=== PATIENT | female | born 1935 | race Caucasian/White ===

== ENCOUNTER 2024-07-09 12:20 | Inpatient (IN) | payer MEDICARE ==
[~2024-07-09] VITALS: Ht 162.6 cm; Wt 60.5 kg
--- NOTE | 2024-07-09 14:00 | ELECTROCARDIOGRAPH REPORT ---
[facility] Test Date: 2024-07-09 Test Time: 13:57:57 Pat Name: RAFFY LEWIS Department: [facility] Patient ID: [facility]-[id number] Room: [place] [address] Gender: F [employer] Location Manager: : 1935 Requested By: FERMIN FLORES Order Number: [id number] Reading MD: Dr. Jeronimo Echols Measurements Intervals [place] Rate: 79 P: 32 NV: 177 QRS: -42 QRSD: 92 T: 77 QT: 387 QTc: 444 Interpretive Statements Sinus rhythm Probable left atrial enlargement Left axis deviation Probable anteroseptal infarct, old Electronically Signed On 07-15-2024 13:45:[address] Jeronimo Echols Please click the below link to view image of tracing.
--- NOTE | 2024-07-09 14:17 | RADIOLOGY REPORT ---
CHEST RADIOGRAPH Indication: sepsis Technique: Single frontal view of the chest was obtained Comparison: None FINDINGS: Lines and Tubes: None Lungs: No focal consolidation. Pleura: No effusion. No pneumothorax. Cardiomediastinal contours: Unremarkable Bones: No acute osseous abnormality. IMPRESSION: No acute cardiopulmonary disease.
[2024-07-09 14:42] LABS: BASOPHILS % (AUTO) 0.2 % (0-1); EOSINOPHILS % (AUTO) 0.1 % (0-6); HEMATOCRIT 33.5 % (35.0-45.0); LYMPHOCYTES # (AUTO) 1.4 X10'3 (1.1-4.8); LYMPHOCYTES % (AUTO) 15.5 % (21-51); MEAN CORPUSCULAR HEMOGLOBIN 27.8 PG (27.0-31.0); MEAN CORPUSCULAR HGB CONC 32.8 g/dL (33.0-36.5); MEAN PLATELET VOLUME 6.9 FL (7.4-10.4); MONOCYTES # (AUTO) 0.8 X10'3 (0-0.9); MONOCYTES % (AUTO) 8.3 % (2-12); NEUTROPHILS # (AUTO) 7.1 X10'3 (1.8-7.7); NEUTROPHILS % (AUTO) 75.9 % (42-75); PLATELET COUNT 436 X10'3 (140-440); RED BLOOD COUNT 3.94 X10'6 (4.20-5.60); RED CELL DISTRIBUTION WIDTH 16.3 % (11.5-14.5); WHITE BLOOD COUNT 9.3 X10'3 (4.5-11.0)
[2024-07-09 14:51] LABS: APTT 27 SECONDS (22-32); INR 1.1 INR; PROTHROMBIN TIME 11.5 SECONDS (9.0-12.0)
[2024-07-09] MEDS: ondansetron/PF 4mg/2ml inj IV ONE ×2 (14:58→16:42)
--- NOTE | 2024-07-09 14:58 | RADIOLOGY REPORT ---
CT CT ABDOMEN PELVIS INDICATION: bowel obstruction EXAM DATE: 07/09/2024 01:48 PM COMPARISON: None RADIATION DOSE: CTDIvol: 11 mGy, DLP: 602 mGy*cm PROCEDURE: Helical CT images were obtained of the abdomen and pelvis without IV contrast Sagittal and coronal reconstructions are provided. ORAL CONTRAST: None. ADDITIONAL IMAGES / REFORMATS: None All C T scans at this medical facility are performed using dose modulation techniques as appropriate to a p erformed exam including the following: Automated exposure control was utilized; adjustment of the MA and/or KV according to patient size; and use of iterative reconstruction technique. FINDINGS: LUNG BASE: Normal. LIVER: Normal. GALLBLADDER AND BILIARY TREE: No calcified gallstones. Normal caliber wall. No intra- or extrahepatic biliary ductal dilation. PANCREAS: Normal. SPLEEN: Multiple punctate granulomas are seen. 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 BOWEL: Multiple dilated loops of small bowel measuring up to 3.2cm is visualized. There is a large fa t containing ventral abdominal wall hernia also containing a loop of small bowel. The appendix is nor mal. Colonic anastomotic sutures are noted. ADRENALS: Normal. KIDNEYS AND URETER: Small bilateral kidney cysts are seen. BLADDER: Normal. REPRODUCTIVE ORGANS: Absent uterus. LYMPH NODES:No lymphadenopathy. PERITONEUM: No ascites or free air. No other fluid collection. VESSELS: Scattered atherosclerotic calcifications are noted. RETROPERITONEUM: Normal. ABDOMINAL WALL: Ventral abdominal wall hernia. BONES: Scattered osseous degenerative changes are noted. IMPRESSION: Multiple dilated loops of small bowel measuring up to 3.2cm. Large fat containing ventral abdominal wall hernia also containing a loop of small bowel, which is li bre the transition point is consistent with a mechanical bowel obstruction.
--- NOTE | 2024-07-09 15:01 | Physician Documentation ---
History of Present Illness ~ Chief Complaint: Constipation Stated Complaint: "I THINK SHE HAS A BOWEL BLOCKAGE" Time Seen by MD: 13:57 Primary Medical Doctor: none Mode of Arrival: POV, Ambulatory HPI This pleasant 88-year-old female presents to the ED with several days of constipation and difficulty defecating. Over the last 1-2 days she has had increased abdominal distention and states that today she has stopped passing gas. This any fevers reports that most of the pain is in this large bulged area in the left lower quadrant. States she has never experienced this before. Patient is alert and oriented and a good historian. Day of Onset: July 09, 2024 Medication Reconciliation Allergies: Coded Allergies: No Known Allergies (Unverified , 07/09/24) Scheduled Amlodipine Besylate (Amlodipine Besylate), 1 TAB PO DAILY, (Reported) Atorvastatin Calcium (Atorvastatin Calcium), 1 TAB PO DAILY, (Reported) Irbesartan (Irbesartan), 1 TAB PO DAILY, (Reported) Levothyroxine Sodium (Levothyroxine Sodium), 1 TAB PO DAILY, (Reported) Omeprazole (Prilosec), 1 CAP PO DAILY, (Reported) Oxybutynin Chloride (Oxybutynin Chloride), 1 TAB PO BID, (Reported) Miscellaneous Medications Hydrochlorothiazide (Hydrochlorothiazide), (Reported) Review of Systems All Other Systems at this time: Reviewed and Negative ROS As stated above in the HPI, otherwise all systems are reviewed and negative. Physical Exam Vital Signs: Temperature: 98.5, Source: Oral, Heart Rate: 78, Respiratory Rate: 18, BP: 139/57, Pulse Oximetry: 95, Weight: 60.450 Physical Exam General: Alert, no apparent distress. Cardiovascular: Regular rate and rhythm, no murmurs. Gastrointestinal: S, tender with a firm large distention in the left lower quadrant. Neurologic: Oriented x4. Psychiatric: Normal mood and affect. Skin: Normal color, warm and dry. No edema, no ecchymosis. Progress Results/Orders Results/Orders Orders - ANIRUDH MORTON NP * Npo Now * (07/09/24 15:04) Nasal Gastric Tube (07/09/24 ) Page Hospitalist (07/09/24 ) Completed Orders - ANIRUDH MORTON LIBRARIAN HELPER Ondansetron Inj. (Zofran 4mg/2ml Vial) (07/09/24 14:50) Medications Received in ER Medications (Trade) Dose Ordered Sig/Latanya Route PRN Reason Start Time Stop Time Status Last Admin Dose Admin (Zofran 4mg/2ml vial) 4 mg ONCE ONCE IV 07/09/24 14:50 07/09/24 14:51 DC 07/09/24 14:58 4 MG Sodium Chloride 1,000 ml @ 100 mls/hr Q10H IV 07/09/24 15:15 07/09/24 15:46 100 MLS/HR Vital Signs 07/09/24 07/09/24 07/09/24 12:30 14:10 14:53 Temp 98.5 Pulse 85 78 Resp 15 15 18 B/P (MAP) 135/54 139/57 (84) Pulse Ox 98 95 Laboratory Tests Test 07/09/24 14:22 White Blood Count 9.3 Red Blood Count 3.94 L Hemoglobin 11.0 L Hematocrit 33.5 L Mean Corpuscular Volume 85.0 Mean Corpuscular Hemoglobin 27.8 Mean Corpuscular Hemoglobin Concent 32.8 L Red Cell Distribution Width 16.3 H Platelet Count 436 Mean Platelet Volume 6.9 L Neutrophils (%) (Auto) 75.9 H Lymphocytes (%) (Auto) 15.5 L Monocytes (%) (Auto) 8.3 Eosinophils (%) (Auto) 0.1 Basophils (%) (Auto) 0.2 Neutrophils # (Auto) 7.1 Lymphocytes # (Auto) 1.4 Monocytes # (Auto) 0.8 Eosinophils # (Auto) 0.0 Basophils # (Auto) 0.0 CBC Comment Prothrombin Time 11.5 INR International Normalized Ratio 1.1 Activated Partial Thromboplast Time 27 Coagulation Comments Sodium Level 139 Potassium Level 3.2 L Chloride Level 99 Carbon Dioxide Level 26.2 Anion Gap 14 Blood Urea Nitrogen 12 Creatinine 0.70 Estimated GFR/1.73 m2 79 BUN/Creatinine Ratio 17.1 Glucose Level 148 H Hemoglobin A1c 6.3 H Lactic Acid Level 1.5 Calcium Level 9.4 Magnesium Level 1.3 L Total Bilirubin 0.6 Aspartate Amino Transf (AST/SGOT) 23 Alanine Aminotransferase (ALT/SGPT) 28 Alkaline Phosphatase 111 Troponin I High Sensitivity 12 Pro-B-Type Natriuretic Peptide 370 Total Protein 7.6 Albumin 2.9 L Globulin 4.7 H Albumin/Globulin Ratio 0.6 L Chemistry Comments Microbiology Date/Time Source Procedure Growth Status 07/09/24 14:28 Blood Hand Left Blood Culture - Preliminary NEGATIVE (LESS THAN 24 HOURS) Resulted Medical Decision Making Findings CT findings indicate: Large fat containing ventral abdominal wall hernia also containing a loop of small bowel, which is likely the transition point is consistent with a mechanical bowel obstruction. Patient has been gone to vomit only bile at this time. Spoke to Dr. Rosado he will see the patient for likely surgery AND admit to the hospital. Departure Disposition: ADMITTED INPATIENT Impression: Primary Impression: Fecal impaction Additional Impressions: SBO (small bowel obstruction) Ventral hernia with bowel obstruction Condition: Stable Referrals: NO PRIMARY CARE PROVIDER (PCP) Signature Scribe Signature: d Attestation: The note accurately reflects work and decisions made by me.Anirudh Sandoval NP 07/09/24 15:10 ANIRUDH MORTON NP July 09, 2024 15:01
[2024-07-09 15:03] LABS: ALANINE AMINOTRANSFERASE 28 U/L (12-78); ALBUMIN 2.9 G/DL (3.4-5.0); ALBUMIN/GLOBULIN RATIO 0.6 (1.1-1.5); ALKALINE PHOSPHATASE 111 IU/L (46-116); ANION GAP 14 (8-16); ASPARTATE AMINO TRANSFERASE 23 U/L (10-37); BILIRUBIN,TOTAL 0.6 MG/DL (0.1-1.0); BLOOD UREA NITROGEN 12 MG/DL (7-18); BUN/CREATININE RATIO 17.1 (10.0-20.0); CALCIUM 9.4 MG/DL (8.5-10.1); CHLORIDE 99 MMOL/L (99-107); GLUCOSE 148 MG/DL (70-104); POTASSIUM 3.2 MMOL/L (3.5-5.1); PRO BRAIN NATRIURETIC PEPTIDE 370 PG/ML (0-450); SODIUM 139 MMOL/L (135-145); TOTAL CARBON DIOXIDE 26.2 MMOL/L (24-32); TOTAL PROTEIN 7.6 G/DL (6.4-8.2); eCRCL 50 ML/MIN; eGFR 79 ML/MIN
[2024-07-09] MEDS ORDERED: magnesium Cl slow-release 64mg tablet PO PRN (15:15)
[2024-07-09] MEDS ORDERED: acetaminophen 325mg tablet PO PRN (15:15)
[2024-07-09] MEDS ORDERED: ondansetron/PF 4mg/2ml inj IV PRN (15:15)
[2024-07-09] MEDS ORDERED: HYDROmorphone inj. 0.5 MG/0.5 ML DISP.SYRIN IV PRN (15:15)
[2024-07-09] MEDS ORDERED: potassium Cl 20 mEq SR tablet PO PRN (15:15)
[2024-07-09 15:36] LABS: MAGNESIUM 1.3 MG/DL (1.5-2.4)
[2024-07-09 15:38] LABS: HEMOGLOBIN A1C 6.3 % (4.5-6.2)
[2024-07-09] MEDS: normal saline 1000ml 1,000 ML IV SCH (15:46)
--- NOTE | 2024-07-09 15:50 | HISTORY AND PHYSICAL-Residence ---
History & Physical Providers to CC Resident Creating Document: ALISSON RAMOS, RES ~ History of Present Illness Primary Medical Doctor: none Reason for Admit\Complaint: Abdominal pain History of Present Illness This is a 88-year-old female with a history of arthritis, hypertension, hypothyroidism, adenocarcinoma of sigmoid s/p resection in 2004, four C-sections presents to the ED with a chief complaint of abdominal pain since yesterday night. She was not able to eat anything since last night and had 7/10 abdominal pain which progressively worsened this morning and hence decided to visit the ER. She had nausea and three episodes of vomiting in the ER. She has a associated abdominal distention and felt a hard mass around the umbilicus mostly on the left side and was not passing any gas since yesterday evening. She denies any fever but has lost 10-20 lb in the last two years due to low appetite. Allergies: Coded Allergies: No Known Allergies (Unverified , 07/09/24) Home Medications Home Medications Active Past Medical History Past Medical History Hypertension, arthritis, hypothyroidism, adenocarcinoma of sigmoid colon Past Surgical History Surgical History Comment Sigmoid colectomy, C-sections Past Social History Social History Comment Denies smoking, alcohol, drugs, ambulates independently ROS All Other Systems: Reviewed and Negative ROS Reviewed and negative except for the pertinent positives in HPI Exam Vitals: Vital Signs Date Time Temp Pulse Resp B/P (MAP) Pulse Ox O2 Delivery O2 Flow Rate FiO2 07/09/24 14:53 18 07/09/24 14:10 78 95 07/09/24 12:30 98.5 General: General: well developed, well nourished. Awake , alert, and oriented x4, resting comfortably in the bed, in no acute distress . HEENT: Atraumatic, normocephalic, EOMI, anicteric sclera B; pink conjunctiva; PERRLA, normal oropharynx, moist oral and nasal mucosa. Tympanic membrane , nose , throat clear. Neck: Trachea midline. Supple, full range of motion, no JVD, bruit , hepatojugular reflex , lymphadenopathy or masses, or other lesions Cardiac: Regular rhythm, regular rate no murmurs, rubs, or gallops. Normal S1 and S2, no S3 noticed. PMI is normal. Respiratory: Equal breath sounds bilaterally, no tachypnea; lungs clear to auscultation bilaterally, no wheezing ,rub or rales, or crackles. Chest wall is symmetric and without deformity. No signs of trauma. Chest wall is nontender. No signs of respiratory distress. Resonance is normal upon percussion bilaterally. Gastrointestinal: Abdomen asymmetric, moderately distended, hard mass around the umbilicus, non-tender, absent bowel sounds x4 quadrant, no hepatosplenomegaly ,no masses , no bruit, no flank pain bilaterally. No voluntary guarding, rebound, or rigidity. No tenderness to percussion. No pulsatile masses. Equal femoral pulses. No Armenta's sign or McBurney point tenderness. Back; no CVA tenderness bilaterally, no deformities. Neck and back are without deformity as well. No tenderness noted on palpation of the spinous processes. Spinous processes are midline. Cervical, thoracic, and lumbar paraspinal muscles are not tender and are without spasm. : normal external genitalia, without lesions, swelling, masses or tenderness. Musculoskeletal: Extremities, normal range of motion, non-tender, muscle strength 5/5 x 4. Negative Homans signs bilaterally on lower extremity. Distal pulses full symmetrical, no clubbing, cyanosis , edema. Neurological: Speech is clear, alert, and oriented x 4. No motor or sensory deficit, deep tendon reflexes normal, cerebellar intact. Cranial nerves II-XII intact. Psych: Alert and or appropriate, normal affect. Vascular: Good distal pulses, which are equal x4; capillary refill less than 2 seconds. Skin: Warm, dry, no pallor, no rash or petechiae. Diagnostic Data Last Recorded Lab Results: 07/09/24 1422 07/09/24 1422 Diagnostic Data: Laboratory Tests Test 07/09/24 14:22 Prothrombin Time 11.5 SECONDS (9.0-12.0) INR International Normalized Ratio 1.1 INR Activated Partial Thromboplast Time 27 SECONDS (22-32) Coagulation Comments Advance Care Planning Advanced Care plannin - 30 Minutes (I spent a total of 17 minutes on reviewing various resuscitative measures/ ACP with the patient at the time of admission. Her daughter was at the bedside. She mentions that the patient's son is the POA. The patient has decided on a DNR code status) Additional Plan Incarcerated ventral hernia CT abdomen shows Multiple dilated loops of small bowel measuring up to 3.2cm. Large fat containing ventral abdominal wall hernia also containing a loop of small bowel, which is likely the transition point is consistent with a mechanical bowel obstruction. Abdomen asymmetric, moderately distended, hard mass around the umbilicus, non- tender, absent bowel sounds x4 quadrant Continue IV fluids at the rate of 100 mL/hour. Nausea medication Zofran as needed. NPO now. NG-tube placement Dr. Avalos has been paged. He recommends robo assisted repair of incarcerated ventral hernia in the a.m.. One dose of cefoxitin given before surgery. UTI UA shows 50-100 urine WBC and small high positive leukocyte esterase. Started on ceftriaxone IV 1 g daily. Follow up with urine cultures Normocytic normochromic Anemia Continue monitoring CBC. Iron studies ordered. Follow up. Consider FOBT if it is iron-deficiency anemia Hypokalemia Potassium replacement protocol in place Hypertension Continue home medication amlodipine, hydrochlorothiazide, irbesartan after resuming oral feeds. IV hydralazine p.r.n. for high blood pressure till then Hypothyroidism Continue levothyroxine after resuming oral feeds Code Status: DNR DVT Prophylaxis: Heparin Analgesia/Sedation: Morphine, Dilaudid p.r.n. Lines/Tubes: PIV Gi Prophylaxis: None Nutrition: NPO PT: Yes Prognosis: Guarded Disposition: Admit to surgical floor. Pending surgical consultation Alisson Good MD Internal Medicine Resident PGY-1 Date of Service: July 09, 2024 Billing Provider: IRASEMA DEL VALLE MD Common Visit Codes: [id number] INP/OBS CARE (HIGH) ALISSON RAMOS, RES July 09, 2024 15:50 IRASEMA DEL VALLE MD July 09, 2024 18:27
[2024-07-09] MEDS: morphine 4 MG/ML inj SYRINge IV ONE (16:42)
[2024-07-09] MEDS ORDERED: ATOR40TA72 PO (16:48)
[2024-07-09] MEDS ORDERED: IRBE150T34 PO (16:48)
[2024-07-09] MEDS ORDERED: HYDR12.55 (16:48)
[2024-07-09] MEDS ORDERED: OXYB5TAB21 PO (16:48)
[2024-07-09] MEDS ORDERED: OMEP40CA21 PO (16:48)
[2024-07-09] MEDS ORDERED: AMLO10TA13 PO (16:48)
[2024-07-09] MEDS ORDERED: LEVO25TA7 PO (16:48)
[2024-07-09] MEDS ORDERED: hydrALAZINE 20mg/ml inj. IV PRN (17:25)
--- NOTE | 2024-07-09 17:26 | RADIOLOGY REPORT ---
Exam: DI ABDOMEN,SINGLE VIEW(KUB) Indication: NG TUBE PLACEMENT Comparison: Same day CT Technique: Frontal radiographic views of the abdomen. Findings: Enteric tube terminates in the plane of the stomach, with the side port projecting near the gastroeso phageal junction. Dilated loops of small bowel are noted in the upper abdomen. There is no definite evidence for pneumoperitoneum. Impression: Enteric tube terminates in the plane of the stomach, with the side port projecting near the gastroeso phageal junction. Consider slight advancement for optimal positioning.
[2024-07-09 18:45] VITALS: BP 134/63; PULSE 90; RESP 18; TEMP 98.8; O2SAT 97
--- NOTE | 2024-07-09 19:33 | PROGRESS NOTE ---
Progress Note ID Providers to CC ~ Progress Note Progress Note: pt seen and examined-needs robo repair of incarcerated ventral hernia in am- discussed procedure including risks/benefits/alternatives RL LOPEZ MD July 09, 2024 19:33
[2024-07-09 20:00] VITALS: RESP 18; O2SAT 98
[2024-07-09] MEDS: K and/or MAG REPLACEMENT MC SCH (20:00)
[2024-07-09] MEDS: ceFOXitin sod/dextrose 2g/50ml 50 ML IV ONE (20:45)
[2024-07-09] MEDS: docusate sod 100mg capsule PO SCH (20:46)
[2024-07-09] MEDS: heparin, porcine 5000 units/ml vial SQ SCH (20:46)
[2024-07-09] MEDS: oxybutynin 5mg tablet PO SCH (20:46)
[2024-07-09 22:00] VITALS: BP 130/59; PULSE 97; RESP 18; TEMP 98.9; O2SAT 93
[2024-07-10] VITALS (13 sets, daily range): BP systolic 108–145; BP diastolic 39–67; PULSE 84–95; RESP 13–20; TEMP 97.5–97.9; O2SAT 90–98
[2024-07-10 00:11] LABS: BILIRUBIN,URINE NEGATIVE (Neg); CLARITY,URINE CLEAR (Clear); COLOR,URINE YELLOW (Yellow); GLUCOSE, URINE NEGATIVE (Neg); KETONES,URINE TRACE mg/dl (Neg); LEUKOCYTE ESTERASE ,URINE SMALL (Neg); NITRITES, URINE NEGATIVE (Neg); OCCULT BLOOD,URINE NEGATIVE (Neg); PROTEIN,URINE TRACE mg/dl (Neg); UROBILINOGEN,URINE 0.2 E.U/dL (0.2-1.0)
[2024-07-10 00:13] LABS: UA COLLECTION TYPE CLN CATCH MIDSTREAM
[2024-07-10 00:17] LABS: WBC,URINE 50-100 /HPF (0-4)
[2024-07-10 00:18] LABS: BACTERIA,URINE FEW /HPF (Neg); RBC,URINE NONE SEEN /HPF (0-2); SQUAMOUS EPITHELIAL CELL,UR FEW /LPF (FEW)
[2024-07-10] MEDS: potassium Cl 40MEQ/1/2NS 520ml 520 ML IV PRN (01:03)
[2024-07-10 05:15] LABS: BASOPHILS % (AUTO) 0.3 % (0-1); EOSINOPHILS % (AUTO) 0.3 % (0-6); HEMATOCRIT 30.6 % (35.0-45.0); HEMOGLOBIN 10.4 g/dl (12.0-16.0); LYMPHOCYTES # (AUTO) 2.1 X10'3 (1.1-4.8); MEAN CORPUSCULAR VOLUME 85.1 FL (78-98); MEAN PLATELET VOLUME 6.7 FL (7.4-10.4); MONOCYTES # (AUTO) 1.1 X10'3 (0-0.9); MONOCYTES % (AUTO) 11.6 % (2-12); NEUTROPHILS # (AUTO) 6.5 X10'3 (1.8-7.7); NEUTROPHILS % (AUTO) 66.8 % (42-75); PLATELET COUNT 375 X10'3 (140-440); RED CELL DISTRIBUTION WIDTH 16.4 % (11.5-14.5); WHITE BLOOD COUNT 9.8 X10'3 (4.5-11.0)
[2024-07-10 05:37] LABS: ALANINE AMINOTRANSFERASE 23 U/L (12-78); ALBUMIN 2.4 G/DL (3.4-5.0); ALBUMIN/GLOBULIN RATIO 0.6 (1.1-1.5); ALKALINE PHOSPHATASE 92 IU/L (46-116); ANION GAP 11 (8-16); ASPARTATE AMINO TRANSFERASE 22 U/L (10-37); BILIRUBIN,TOTAL 0.6 MG/DL (0.1-1.0); BLOOD UREA NITROGEN 11 MG/DL (7-18); BUN/CREATININE RATIO 19.3 (10.0-20.0); CALCIUM 8.8 MG/DL (8.5-10.1); CHLORIDE 103 MMOL/L (99-107); CHOL/HDL RATIO 2.4 (0.00-4.99); CHOLESTEROL 88 MG/DL (0-200); CREATININE 0.57 MG/DL (0.40-0.90); GLUCOSE 110 MG/DL (70-104); HDL CHOLESTEROL 36 MG/DL (35-60); LDL CHOLESTEROL 40 MG/DL (50-100); MAGNESIUM 1.2 MG/DL (1.5-2.4); POTASSIUM 3.6 MMOL/L (3.5-5.1); SODIUM 140 MMOL/L (135-145); TOTAL CARBON DIOXIDE 25.7 MMOL/L (24-32); TOTAL PROTEIN 6.5 G/DL (6.4-8.2); TRIGLYCERIDES 84 MG/DL (20-135); eCRCL 61 ML/MIN; eGFR > 90 ML/MIN
[2024-07-10] MEDS: magnesium sulf-water 4G/100mL 100 ML IV PRN (06:01)
[2024-07-10] MEDS: levoTHYROXINE 25mcg tablet PO SCH (08:29)
[2024-07-10] MEDS: pantoprazole 40mg Tablet.DR PO SCH (08:29)
[2024-07-10] MEDS: atorvastatin 20mg tablet PO SCH (08:30)
[2024-07-10] MEDS: amLODIPine 5mg tablet PO SCH (08:30)
[2024-07-10] MEDS: losartan 50mg tablet PO SCH (08:31)
[2024-07-10] MEDS ORDERED: DICLOFENAC SODIUM 1% gel 1 50GM tube TP SCH (09:10)
[2024-07-10] MEDS ORDERED: BUPIVAcaine 2.5mg/ml inj 50ml vial (contains preservative) ONE (10:02)
[2024-07-10] MEDS ORDERED: DICLOFENAC SODIUM 1% gel 1 50GM tube TP PRN (10:10)
[2024-07-10] MEDS ORDERED: hydrALAZINE 20mg/ml inj. IV PRN (10:15)
[2024-07-10] MEDS: ringers solution, lacted 1,000 ML IV SCH (10:15)
[2024-07-10] MEDS ORDERED: morphine 4 MG/ML inj SYRINge IV PRN ×2 (10:15→20:29)
[2024-07-10] MEDS ORDERED: labetalol 20mg/4ml (5mg/ml) syringe IV PRN (10:15)
[2024-07-10] MEDS ORDERED: ondansetron/PF 4mg/2ml inj IV PRN ×2 (10:15→13:25)
[2024-07-10] MEDS ORDERED: fentaNYL/PF 50MCG/1 ML 2ML syringe ONE (10:30)
[2024-07-10] MEDS ORDERED: propofol inj 20 ML IV ONE (10:30)
[2024-07-10] MEDS ORDERED: rocuronium 10mg/ml inj IV ONE (10:30)
[2024-07-10] MEDS ORDERED: sevoflurane 250ml liquid IH ONE (11:04)
[2024-07-10] MEDS ORDERED: acetaminophen 1,000mg/100ml IV 100 ML IV ONE (12:19)
[2024-07-10] MEDS ORDERED: albumin (Human) 5% 250ml 250 ML IV ONE (12:19)
[2024-07-10] MEDS ORDERED: ondansetron/PF 4mg/2ml inj ONE (12:19)
[2024-07-10] MEDS ORDERED: dexamethasone sod phosphate 4mg/ml inj. ONE (12:19)
[2024-07-10] MEDS ORDERED: sugammadex 200mg/2ml injection IV ONE (12:21)
[2024-07-10] MEDS: HYDROmorphone/PF 0.2 MG/ML SYRINGE IV PRN ×2 (12:57→13:07)
[2024-07-10] MEDS: morphine 2 MG/ML inj. syringe IV PRN ×2 (13:05→13:23)
--- NOTE | 2024-07-10 13:18 | OPERATIVE REPORT ---
Operative Report Providers to CC ~ Date of Procedure: July 10, 2024 Pre-Operative Diagnosis: abdominal pain Post-Operative Diagnosis SAME as PRE-Op Procedure Performed robotic chris/ex lap/small bowel resection/repair ventral hernia Surgeon: dina Oven Tender none Anesthesiologist: Abimael Dominguez Type of Anesthesia: General Findings: strangulated ventral hernia Estimated Blood Loss: 100 ml Specimen Removed: small bowel RL LOPEZ MD July 10, 2024 13:18
[2024-07-10] MEDS ORDERED: PCA WASTE DOCUMENTATION 1 MG ML MC SCH (13:25)
[2024-07-10] MEDS ORDERED: naloxone 0.4 mg/ml inj IV PRN (13:25)
--- NOTE | 2024-07-10 15:12 | PROGRESS NOTE- Residence ---
Progress Note - Resident Providers to CC Resident Creating Document: RACHELALISSON RES ~ Antibiotic Timeout Antibiotic Ordered?: Yes Subjective Patient was seen and examined at the bedside. She underwent robotic lysis of adhesions, exploratory laparotomy and small-bowel resection of ventral incarcerated hernia. Patient is hemodynamically stable postoperatively. She is mildly confused and not completely out of anesthesia yet. Objective Vital Signs Date Time Temp Pulse Resp B/P (MAP) Pulse Ox O2 Delivery O2 Flow Rate FiO2 07/10/24 14:35 16 07/10/24 13:40 84 125/49 (74) 92 Nasal Cannula 3.0 07/10/24 13:26 97.9 Result Diagram: 07/10/24 0455 07/10/24 0455 General: well developed, well nourished. Awake , alert, and oriented x4, resting comfortably in the bed, in no acute distress . HEENT: Atraumatic, normocephalic, EOMI, anicteric sclera B; pink conjunctiva; PERRLA, normal oropharynx, moist oral and nasal mucosa. Tympanic membrane , nose , throat clear. Neck: Trachea midline. Supple, full range of motion, no JVD, bruit , hepatojugular reflex , lymphadenopathy or masses, or other lesions Cardiac: Regular rhythm, regular rate no murmurs, rubs, or gallops. Normal S1 and S2, no S3 noticed. PMI is normal. Respiratory: Equal breath sounds bilaterally, no tachypnea; lungs clear to auscultation bilaterally, no wheezing ,rub or rales, or crackles. Chest wall is symmetric and without deformity. No signs of trauma. Chest wall is nontender. No signs of respiratory distress. Resonance is normal upon percussion bilaterally. Gastrointestinal: Abdomen surgical site intact and covered with dressing. No pulsatile masses. Equal femoral pulses. No Armenta's sign or McBurney point tenderness. Back; no CVA tenderness bilaterally, no deformities. Neck and back are without deformity as well. No tenderness noted on palpation of the spinous processes. Spinous processes are midline. Cervical, thoracic, and lumbar paraspinal muscles are not tender and are without spasm. : normal external genitalia, without lesions, swelling, masses or tenderness. Musculoskeletal: Extremities, normal range of motion, non-tender, muscle strength 5/5 x 4. Negative Homans signs bilaterally on lower extremity. Distal pulses full symmetrical, no clubbing, cyanosis , edema. Neurological: Speech is clear, alert, and oriented x 4. No motor or sensory deficit, deep tendon reflexes normal, cerebellar intact. Cranial nerves II-XII intact. Psych: Alert and or appropriate, normal affect. Vascular: Good distal pulses, which are equal x4; capillary refill less than 2 seconds. Skin: Warm, dry, no pallor, no rash or petechiae. Coagulation Studies Laboratory Tests Test 07/09/24 14:22 Prothrombin Time 11.5 SECONDS (9.0-12.0) INR International Normalized Ratio 1.1 INR Activated Partial Thromboplast Time 27 SECONDS (22-32) Coagulation Comments Assessment Assessment This is a 88-year-old female with a history of arthritis, hypertension, hypothyroidism, adenocarcinoma of sigmoid s/p resection in 2004, four C-sections presents to the ED with a chief complaint of abdominal pain since yesterday night. She was not able to eat anything since last night and had 7/10 abdominal pain which progressively worsened this morning and hence decided to visit the ER. She had nausea and three episodes of vomiting in the ER. She has a associated abdominal distention and felt a hard mass around the umbilicus mostly on the left side and was not passing any gas since yesterday evening. She denies any fever but has lost 10-20 lb in the last two years due to low appetite. Plan Plan Incarcerated ventral hernia CT abdomen shows Multiple dilated loops of small bowel measuring up to 3.2cm. Large fat containing ventral abdominal wall hernia also containing a loop of small bowel, which is likely the transition point is consistent with a mechanical bowel obstruction. Abdomen asymmetric, moderately distended, hard mass around the umbilicus, non- tender, absent bowel sounds x4 quadrant Continue IV fluids at the rate of 100 mL/hour. Nausea medication Zofran as needed. NPO now. NG-tube placement Dr. Avalos has been paged. He recommends robo assisted repair of incarcerated ventral hernia in the a.m.. One dose of cefoxitin given before surgery. 07/10/24: Patient underwent robotic lysis of adhesions, exploratory laparotomy and small bowel resection of ischemic bowel, repair of ventral hernia. Educated the nursing staff on Pain control with [place], morphine, Dilaudid as needed UTI UA shows 50-100 urine WBC and small high positive leukocyte esterase. Started on ceftriaxone IV 1 g daily. Follow up with urine cultures Normocytic normochromic Anemia Continue monitoring CBC. Iron studies ordered. Follow up. Consider FOBT if it is iron-deficiency anemia Hypokalemia Potassium replacement protocol in place Hypertension Continue home medication amlodipine, hydrochlorothiazide, irbesartan after resuming oral feeds. IV hydralazine p.r.n. for high blood pressure till then Hypothyroidism Continue levothyroxine after resuming oral feeds Code Status: DNR DVT Prophylaxis: Heparin Analgesia/Sedation: Morphine, Dilaudid p.r.n. Lines/Tubes: PIV Gi Prophylaxis: None Nutrition: Clear liquid diet, Advance diet as tolerated PT: Yes Prognosis: Guarded Disposition: Continue care in surgical floor. Discharge planning per surgeon. Alisson Good MD Internal Medicine Resident PGY-1 Date of Service: July 10, 2024 Billing Provider: IRASEMA DEL VALLE MD Common Visit Codes: [id number] INP/OBS CARE(HIGH) ALISSON RAMOS, RES July 10, 2024 15:12 IRASEMA DEL VALLE MD July 10, 2024 18:54
--- NOTE | 2024-07-10 19:59 | CONSULTATION ---
DATE OF CONSULTATION: 07/10/2024 DICTATING PHYSICIAN: Sebastian Avalos MD REASON FOR CONSULTATION: Ventral hernia. HISTORY OF PRESENT ILLNESS: The patient is an 88-year-old female with history of osteoarthritis, hypertension, and colon cancer with ____ abdominal discomfort. CAT scan revealed a ventral hernia containing bowels. Surgical evaluation now requested. On further questioning, the patient has minimal abdominal pain. He has had some nausea and vomiting. Her last BM was few days ago. PAST MEDICAL HISTORY: Osteoarthritis, hypertension, hypothyroidism, colon cancer. PAST SURGICAL HISTORY: Sigmoid colectomy, C-sections. HOME MEDICATIONS: See chart. ALLERGIES: None. SOCIAL HISTORY: No tobacco or alcohol use. REVIEW OF SYSTEMS: See H and P. PHYSICAL EXAMINATION: GENERAL: Well-nourished female in minimal distress. VITAL SIGNS: Unremarkable. HEART: Regular rate and rhythm. LUNGS: Clear to auscultation. ABDOMEN: Minimal tenderness. There is a mass level of the umbilicus which has minimal tenderness to palpation. No signs of peritonitis. EXTREMITIES: Unremarkable. NEUROLOGIC: Nonfocal. LABORATORY DATA: Labs include WBC of 9, hematocrit of 33, platelet count 436, chemistries, BUN and creatinine are 11 and 0.5, lactic acid 1.5. IMAGING STUDIES: CAT scan reveals a ventral hernia containing loops of the bowel with a small bowel obstruction. IMPRESSION: * Incarcerated ventral hernia with small bowel obstruction. * Hypertension. * Arthritis. * Hypothyroidism. * Colon cancer. RECOMMENDATIONS: NG tube. Surgical repair. Sebastian Avalos MD TID: [id number] RECEIPT: [id number] TORRI/VASHTI/CHHAYA
[2024-07-10] MEDS: magnesium sulf-water 2g/50mL 50 ML IV PRN (20:45)
--- NOTE | 2024-07-11 01:21 | OPERATIVE REPORT ---
DATE OF SURGERY: 07/10/2024 DICTATING PHYSICIAN: Sebastian Avalos MD PREOPERATIVE DIAGNOSIS: Incarcerated ventral hernia. POSTOPERATIVE DIAGNOSIS: Strangulated ventral hernia. PROCEDURES: * Robotic lysis of adhesions. * Laparotomy. * Small bowel resection. * Repair of a 5.5 cm ventral hernia. SURGEON: Sebastian Avalos MD HEALTH OUTREACH WORKER: None. ANESTHESIA: General/Dr. Dominguez. DRAINS: Terrell x 1. INDICATIONS FOR OPERATION: An 88-year-old female with a history of previous abdominal laparotomy, presented to the ER with complaints of abdominal pain and a bulge, had a CAT scan which revealed what was thought to be incarcerated ventral hernia containing small bowel. The patient was seen, had minimal tenderness. White count was unremarkable. The patient came to Surgery the next morning for a repair of the ventral hernia. INTRAOPERATIVE FINDINGS: The patient had ischemic bowel through the defect. The patient also had some adhesions adjacent to the defect with small bowel tethered to the abdominal wall. Small bowel was subsequently mobilized out of the defect using the robot. During the course of mobilizing the small bowel away from the abdominal wall, concerns were raised about an enterotomy. Procedure was converted to an open operation to reexamine the small bowel carefully and repair the defect. Given concerns about the enterotomy, mesh could not be placed at the time of robotic procedure. DESCRIPTION OF PROCEDURE: The patient was placed supine on the operating room table. After induction of general anesthesia and placement of endotracheal tube, the abdomen was prepped and draped. A subxiphoid incision was made and Jeff port was placed using open technique. Pneumoperitoneum was then initiated. Ports were placed in the left lateral abdomen. Robots were brought to the field. Camera port docked. Camera placed, camera targeted. Additional ports were then docked and instruments placed. The abdomen was then explored. The patient had extensive adhesions, which were taken down robotically. The small bowel was tethered to the abdominal wall away from the defect as well as having small bowel through the defect. The omentum was simply mobilized out of the defect and the small bowel was reduced in the abdominal cavity. Remainder of adhesions were taken down. Small bowel was mobilized in the abdominal wall. Small bowel was found to be ischemic. There were other concerns small bowel having a possible perforation. Decision was made to convert to open procedure. Pneumoperitoneum was then evacuated and ports were removed. A midline incision was subsequently made. Abdominal cavity entered. Abdomen was then explored. A self-retaining retractor was subsequently placed. Small bowel was run from ligament of Treitz to the cecal valve. The area was strangulated, improved dramatically over a short period of time. the area of small bowel the defect that had the enterotomy, so short segment was resected using multiple firings of a MARIA L-75 stapler. A ytak-km-bmjl anastomosis was constructed and closed with a TA 60. Mesenteric defect closed with sutures of 3-0 silk. Abdomen was then copiously irrigated with large amount of antibiotic-containing solution. When hemostasis was found to be adequate, a #19 Terrell drain was placed through a separate incision directly in the pelvis. Rectal fascia closed with running suture of looped PDS and was closed with clips, gigi placed. Port incisions were closed. Dressings applied. The patient was transferred to the recovery room in stable condition after reversing from general anesthesia. Sebastian Avalos MD TID: [id number] RECEIPT: [id number] TORRI/KARRIE/CHHAYA
[2024-07-11 06:00] VITALS: BP 137/58; PULSE 83; RESP 16; TEMP 98.1; O2SAT 91
[2024-07-11 06:08] LABS: BASOPHILS % (AUTO) 0.1 % (0-1); EOSINOPHILS % (AUTO) 0 % (0-6); HEMATOCRIT 28.2 % (35.0-45.0); HEMOGLOBIN 9.6 g/dl (12.0-16.0); LYMPHOCYTES % (AUTO) 9.7 % (21-51); MEAN CORPUSCULAR HEMOGLOBIN 29.2 PG (27.0-31.0); MEAN CORPUSCULAR VOLUME 85.7 FL (78-98); MEAN PLATELET VOLUME 6.9 FL (7.4-10.4); MONOCYTES # (AUTO) 0.9 X10'3 (0-0.9); MONOCYTES % (AUTO) 8.5 % (2-12); NEUTROPHILS # (AUTO) 8.7 X10'3 (1.8-7.7); NEUTROPHILS % (AUTO) 81.7 % (42-75); PLATELET COUNT 315 X10'3 (140-440); RED BLOOD COUNT 3.29 X10'6 (4.20-5.60); RED CELL DISTRIBUTION WIDTH 16.6 % (11.5-14.5); WHITE BLOOD COUNT 10.6 X10'3 (4.5-11.0)
[2024-07-11 06:30] LABS: ALANINE AMINOTRANSFERASE 18 U/L (12-78); ALBUMIN/GLOBULIN RATIO 0.5 (1.1-1.5); ALKALINE PHOSPHATASE 72 IU/L (46-116); ANION GAP 7 (8-16); ASPARTATE AMINO TRANSFERASE 19 U/L (10-37); BILIRUBIN,TOTAL 0.6 MG/DL (0.1-1.0); BLOOD UREA NITROGEN 10 MG/DL (7-18); BUN/CREATININE RATIO 18.2 (10.0-20.0); CHLORIDE 104 MMOL/L (99-107); CREATININE 0.55 MG/DL (0.40-0.90); GLUCOSE 119 MG/DL (70-104); MAGNESIUM 2.1 MG/DL (1.5-2.4); POTASSIUM 3.2 MMOL/L (3.5-5.1); SODIUM 138 MMOL/L (135-145); TOTAL CARBON DIOXIDE 26.9 MMOL/L (24-32); TOTAL PROTEIN 5.7 G/DL (6.4-8.2); eCRCL 63 ML/MIN; eGFR > 90 ML/MIN
[2024-07-11] MEDS: CefTRIAXone/D5W-Rocephin 1gm 50 ML IV SCH (08:09)
[2024-07-11] MEDS: potassium Cl 20 mEq SR tablet PO PRN (08:15)
[2024-07-11] MEDS: magnesium hydroxide 30ml (MOM) UD suspension PO PRN (08:15)
[2024-07-11 10:00] VITALS: BP 118/45; PULSE 81; RESP 17; TEMP 98.6; O2SAT 91
--- NOTE | 2024-07-11 13:31 | PROGRESS NOTE- Residence ---
Progress Note - Resident Providers to CC Resident Creating Document: ALISSON RAMOS RES ~ Antibiotic Timeout Antibiotic Ordered?: Yes Subjective Patient was seen and examined at the bedside. Daughter is at the bedside. Her pain is well controlled with medications. There is about 60 mL output from the abdominal drain. There is 100 mL output in the NG-tube since last night. The patient is still NPO does not have bowel sounds and not passing gas. Objective Vital Signs Date Time Temp Pulse Resp B/P (MAP) Pulse Ox O2 Delivery O2 Flow Rate FiO2 07/11/24 08:11 83 07/11/24 06:00 98.1 16 137/58 (84) 91 Room Air 07/10/24 18:30 3.0 Result Diagram: 07/11/24 0514 07/11/24 0514 General: well developed, well nourished. Awake , alert, and oriented x4, resting comfortably in the bed, in no acute distress . HEENT: Atraumatic, normocephalic, EOMI, anicteric sclera B; pink conjunctiva; PERRLA, normal oropharynx, moist oral and nasal mucosa. Tympanic membrane , nose , throat clear. Neck: Trachea midline. Supple, full range of motion, no JVD, bruit , hepatojugular reflex , lymphadenopathy or masses, or other lesions Cardiac: Regular rhythm, regular rate no murmurs, rubs, or gallops. Normal S1 and S2, no S3 noticed. PMI is normal. Respiratory: Equal breath sounds bilaterally, no tachypnea; lungs clear to auscultation bilaterally, no wheezing ,rub or rales, or crackles. Chest wall is symmetric and without deformity. No signs of trauma. Chest wall is nontender. No signs of respiratory distress. Resonance is normal upon percussion bilaterally. Gastrointestinal: Abdomen surgical site intact and covered with dressing. No pulsatile masses. Equal femoral pulses. No Armenta's sign or McBurney point tenderness. Back; no CVA tenderness bilaterally, no deformities. Neck and back are without deformity as well. No tenderness noted on palpation of the spinous processes. Spinous processes are midline. Cervical, thoracic, and lumbar paraspinal muscles are not tender and are without spasm. : normal external genitalia, without lesions, swelling, masses or tenderness. Musculoskeletal: Extremities, normal range of motion, non-tender, muscle strength 5/5 x 4. Negative Homans signs bilaterally on lower extremity. Distal pulses full symmetrical, no clubbing, cyanosis , edema. Neurological: Speech is clear, alert, and oriented x 4. No motor or sensory deficit, deep tendon reflexes normal, cerebellar intact. Cranial nerves II-XII intact. Psych: Alert and or appropriate, normal affect. Vascular: Good distal pulses, which are equal x4; capillary refill less than 2 seconds. Skin: Warm, dry, no pallor, no rash or petechiae. Coagulation Studies Laboratory Tests Test 07/09/24 14:22 Prothrombin Time 11.5 SECONDS (9.0-12.0) INR International Normalized Ratio 1.1 INR Activated Partial Thromboplast Time 27 SECONDS (22-32) Coagulation Comments Assessment Assessment This is a 88-year-old female with a history of arthritis, hypertension, hypothyroidism, adenocarcinoma of sigmoid s/p resection in 2004, four C-sections presents to the ED with a chief complaint of abdominal pain since yesterday night. She was not able to eat anything since last night and had 7/10 abdominal pain which progressively worsened this morning and hence decided to visit the ER. She had nausea and three episodes of vomiting in the ER. She has a associated abdominal distention and felt a hard mass around the umbilicus mostly on the left side and was not passing any gas since yesterday evening. She denies any fever but has lost 10-20 lb in the last two years due to low appetite. Plan Plan Strangulated ventral hernia CT abdomen shows Multiple dilated loops of small bowel measuring up to 3.2cm. Large fat containing ventral abdominal wall hernia also containing a loop of small bowel, which is likely the transition point is consistent with a mechanical bowel obstruction. Abdomen asymmetric, moderately distended, hard mass around the umbilicus, non- tender, absent bowel sounds x4 quadrant Continue IV fluids at the rate of 100 mL/hour. Nausea medication Zofran as needed. NPO now. NG-tube placement Dr. Avalos has been paged. He recommends robo assisted repair of incarcerated ventral hernia in the a.m.. One dose of cefoxitin given before surgery. 07/10/24: Patient underwent robotic lysis of adhesions, exploratory laparotomy and small bowel resection of ischemic bowel, repair of ventral hernia. Educated the nursing staff on Pain control with [place], morphine, Dilaudid as needed 07/11/2024: No bowel sounds yet, not passing flatus. Pain well controlled. Abdominal drain has about 60 mL output UTI UA shows 50-100 urine WBC and small high positive leukocyte esterase. Started on ceftriaxone IV 1 g daily. Follow up with urine cultures Normocytic normochromic Anemia Continue monitoring CBC. Iron studies ordered. Follow up. Consider FOBT if it is iron-deficiency anemia Hypokalemia Potassium replacement protocol in place Hypertension Continue home medication amlodipine, hydrochlorothiazide, irbesartan after resuming oral feeds. IV hydralazine p.r.n. for high blood pressure till then Hypothyroidism Continue levothyroxine after resuming oral feeds Code Status: DNR DVT Prophylaxis: Heparin Analgesia/Sedation: Morphine, Dilaudid p.r.n. Lines/Tubes: PIV Gi Prophylaxis: None Nutrition: Clear liquid diet, Advance diet as tolerated PT: Yes Prognosis: Guarded Disposition: Continue care in surgical floor. Discharge planning per surgeon. Alisson Stock MD Internal Medicine Resident PGY-1 Date of Service: July 11, 2024 Billing Provider: MARISEL JOY MD,ALISSON STOCK, RES July 11, 2024 13:31
[2024-07-11] MEDS: mag hydrox/Alum hydrox/simeth 30ml oral suspension PO PRN (14:29)
--- NOTE | 2024-07-11 15:27 | PROGRESS NOTE ---
Progress Note ID Providers to CC ~ Progress Note Progress Note: complains of pain/vss/abd-nondistended/labs note a/p 1. s/p repair ventral hernia/bowel resection-slow progress/cont supportive care RL LOPEZ MD July 11, 2024 15:27
[2024-07-11 18:30] VITALS: BP 127/57; PULSE 93; RESP 19; TEMP 98; O2SAT 90
[2024-07-11] MEDS: HYDROmorphone inj. 0.5 MG/0.5 ML DISP.SYRIN IV PRN (18:56)
[2024-07-11 20:00] VITALS: RESP 16; O2SAT 92
[2024-07-11 22:00] VITALS: BP 131/98; PULSE 85; RESP 16; TEMP 98; O2SAT 91
[2024-07-12] MEDS: bisacodyl 10mg suppository rectal RC PRN (01:46)
[2024-07-12 04:54] LABS: BASOPHILS % (AUTO) 0.1 % (0-1); EOSINOPHILS % (AUTO) 0.1 % (0-6); HEMATOCRIT 29.2 % (35.0-45.0); HEMOGLOBIN 9.8 g/dl (12.0-16.0); LYMPHOCYTES # (AUTO) 1.3 X10'3 (1.1-4.8); LYMPHOCYTES % (AUTO) 13.2 % (21-51); MEAN CORPUSCULAR HEMOGLOBIN 29.1 PG (27.0-31.0); MEAN CORPUSCULAR HGB CONC 33.7 g/dL (33.0-36.5); MEAN CORPUSCULAR VOLUME 86.4 FL (78-98); MONOCYTES # (AUTO) 1.1 X10'3 (0-0.9); MONOCYTES % (AUTO) 10.6 % (2-12); NEUTROPHILS # (AUTO) 7.6 X10'3 (1.8-7.7); PLATELET COUNT 337 X10'3 (140-440); RED BLOOD COUNT 3.38 X10'6 (4.20-5.60); RED CELL DISTRIBUTION WIDTH 17.2 % (11.5-14.5)
[2024-07-12 05:10] LABS: ALANINE AMINOTRANSFERASE 21 U/L (12-78); ALBUMIN/GLOBULIN RATIO 0.5 (1.1-1.5); ALKALINE PHOSPHATASE 76 IU/L (46-116); ANION GAP 6 (8-16); ASPARTATE AMINO TRANSFERASE 15 U/L (10-37); BILIRUBIN,TOTAL 0.5 MG/DL (0.1-1.0); BLOOD UREA NITROGEN 15 MG/DL (7-18); CALCIUM 8.3 MG/DL (8.5-10.1); CHLORIDE 109 MMOL/L (99-107); GLUCOSE 139 MG/DL (70-104); MAGNESIUM 2.2 MG/DL (1.5-2.4); POTASSIUM 3.6 MMOL/L (3.5-5.1); SODIUM 142 MMOL/L (135-145); TOTAL CARBON DIOXIDE 27.1 MMOL/L (24-32); eCRCL 70 ML/MIN; eGFR > 90 ML/MIN
[2024-07-12 06:00] VITALS: BP 121/70; PULSE 92; RESP 17; TEMP 98.6; O2SAT 91
[2024-07-12 08:00] VITALS: RESP 17; O2SAT 93
[2024-07-12 10:00] VITALS: BP 128/61; PULSE 77; RESP 16; TEMP 97.9; O2SAT 92
--- NOTE | 2024-07-12 17:33 | PROGRESS NOTE- Residence ---
Progress Note - Resident Providers to CC Resident Creating Document: ALISSON RAMOS RES ~ Antibiotic Timeout Antibiotic Ordered?: Yes Subjective Patient was seen and examined at the bedside. Patient had 400 mL of output from the NG tube in 160 mL output from the GJ-tube. NG tube has been removed today in the evening. Patient has bowel sounds but not passing flatus yet. Objective Vital Signs Date Time Temp Pulse Resp B/P (MAP) Pulse Ox O2 Delivery O2 Flow Rate FiO2 07/12/24 10:00 97.9 77 16 128/61 (83) 92 Room Air 07/10/24 18:30 3.0 Result Diagram: 07/12/246 07/12/246 General: well developed, well nourished. Awake , alert, and oriented x4, resting comfortably in the bed, in no acute distress . HEENT: Atraumatic, normocephalic, EOMI, anicteric sclera B; pink conjunctiva; PERRLA, normal oropharynx, moist oral and nasal mucosa. Tympanic membrane , nose , throat clear. Neck: Trachea midline. Supple, full range of motion, no JVD, bruit , hepatojugular reflex , lymphadenopathy or masses, or other lesions Cardiac: Regular rhythm, regular rate no murmurs, rubs, or gallops. Normal S1 and S2, no S3 noticed. PMI is normal. Respiratory: Equal breath sounds bilaterally, no tachypnea; lungs clear to auscultation bilaterally, no wheezing ,rub or rales, or crackles. Chest wall is symmetric and without deformity. No signs of trauma. Chest wall is nontender. No signs of respiratory distress. Resonance is normal upon percussion bilaterally. Gastrointestinal: Abdomen surgical site intact and covered with dressing. GJ tube in place. No pulsatile masses. Equal femoral pulses. No Armenta's sign or McBurney point tenderness. Back; no CVA tenderness bilaterally, no deformities. Neck and back are without deformity as well. No tenderness noted on palpation of the spinous processes. Spinous processes are midline. Cervical, thoracic, and lumbar paraspinal muscles are not tender and are without spasm. : normal external genitalia, without lesions, swelling, masses or tenderness. Musculoskeletal: Extremities, normal range of motion, non-tender, muscle strength 5/5 x 4. Negative Homans signs bilaterally on lower extremity. Distal pulses full symmetrical, no clubbing, cyanosis , edema. Neurological: Speech is clear, alert, and oriented x 4. No motor or sensory deficit, deep tendon reflexes normal, cerebellar intact. Cranial nerves II-XII intact. Psych: Alert and or appropriate, normal affect. Vascular: Good distal pulses, which are equal x4; capillary refill less than 2 seconds. Skin: Warm, dry, no pallor, no rash or petechiae. Coagulation Studies Laboratory Tests Test 07/09/24 14:22 Prothrombin Time 11.5 SECONDS (9.0-12.0) INR International Normalized Ratio 1.1 INR Activated Partial Thromboplast Time 27 SECONDS (22-32) Coagulation Comments Assessment Assessment This is a 88-year-old female with a history of arthritis, hypertension, hypothyroidism, adenocarcinoma of sigmoid s/p resection in 2004, four C-sections presents to the ED with a chief complaint of abdominal pain since yesterday night. She was not able to eat anything since last night and had 7/10 abdominal pain which progressively worsened this morning and hence decided to visit the ER. She had nausea and three episodes of vomiting in the ER. She has a associated abdominal distention and felt a hard mass around the umbilicus mostly on the left side and was not passing any gas since yesterday evening. She denies any fever but has lost 10-20 lb in the last two years due to low appetite. Plan Plan Acute Strangulated ventral hernia CT abdomen shows Multiple dilated loops of small bowel measuring up to 3.2cm. Large fat containing ventral abdominal wall hernia also containing a loop of small bowel, which is likely the transition point is consistent with a mechanical bowel obstruction. Abdomen asymmetric, moderately distended, hard mass around the umbilicus, non- tender, absent bowel sounds x4 quadrant Continue IV fluids at the rate of 100 mL/hour. Nausea medication Zofran as needed. One dose of cefoxitin given before surgery. 07/10/24: Patient underwent robotic lysis of adhesions, exploratory laparotomy and small bowel resection of ischemic bowel, repair of ventral hernia. Educated the nursing staff on Pain control with [place], morphine, Dilaudid as needed 07/11/2024: No bowel sounds yet, not passing flatus. Pain well controlled. Abdominal drain has about 60 mL output 07/12/2024: NG tube removed. Bowel sounds appreciated. Not passing flatus yet. Still on ice chip diet UTI UA shows 50-100 urine WBC and small high positive leukocyte esterase. Started on ceftriaxone IV 1 g daily. Follow up with urine cultures Normocytic normochromic Anemia Continue monitoring CBC. Iron studies ordered. Follow up. Consider FOBT if it is iron-deficiency anemia Hypokalemia Potassium replacement protocol in place Hypertension Continue home medication amlodipine, hydrochlorothiazide, irbesartan after resuming oral feeds. IV hydralazine p.r.n. for high blood pressure till then Hypothyroidism Continue levothyroxine after resuming oral feeds Severe protein calorie malnutrition Hypoalbuminemia With albumin 1.9. Ensure enlive t.i.d. when starting oral feels Code Status: DNR DVT Prophylaxis: Heparin Analgesia/Sedation: Morphine, Dilaudid p.r.n. Lines/Tubes: PIV Gi Prophylaxis: None Nutrition: Ice chip diet PT: Yes Prognosis: Guarded Disposition: Continue care in surgical floor. Discharge planning per surgeon. Alisson Stock MD Internal Medicine Resident PGY-1 Date of Service: July 12, 2024 Billing Provider: MARISEL JOY MD,ALISSON STOCK, RES July 12, 2024 17:33
[2024-07-12 18:30] VITALS: BP 126/56; PULSE 83; RESP 16; TEMP 97.6; O2SAT 95
[2024-07-12 20:00] VITALS: RESP 16; O2SAT 95
--- NOTE | 2024-07-12 20:57 | PROGRESS NOTE ---
Progress Note ID Providers to CC ~ Progress Note Progress Note: slow progress-resume po when gi functiion returns RL LOPEZ MD July 12, 2024 20:57
[2024-07-12 22:00] VITALS: BP 108/78; PULSE 97; RESP 16; TEMP 98; O2SAT 95
[2024-07-13 05:51] LABS: BASOPHILS % (AUTO) 0.3 % (0-1); EOSINOPHILS # (AUTO) 0.2 X10'3 (0-0.9); EOSINOPHILS % (AUTO) 1.9 % (0-6); HEMATOCRIT 28.3 % (35.0-45.0); HEMOGLOBIN 9.7 g/dl (12.0-16.0); LYMPHOCYTES % (AUTO) 22.2 % (21-51); MEAN CORPUSCULAR HEMOGLOBIN 29.4 PG (27.0-31.0); MEAN CORPUSCULAR HGB CONC 34.4 g/dL (33.0-36.5); MEAN CORPUSCULAR VOLUME 85.5 FL (78-98); MEAN PLATELET VOLUME 7.6 FL (7.4-10.4); MONOCYTES % (AUTO) 10.7 % (2-12); NEUTROPHILS # (AUTO) 5.9 X10'3 (1.8-7.7); NEUTROPHILS % (AUTO) 64.9 % (42-75); PLATELET COUNT 340 X10'3 (140-440); RED BLOOD COUNT 3.31 X10'6 (4.20-5.60)
[2024-07-13 06:00] VITALS: BP 135/74; PULSE 92; RESP 16; TEMP 97.9; O2SAT 96
[2024-07-13 06:05] LABS: ALANINE AMINOTRANSFERASE 21 U/L (12-78); ALBUMIN 1.9 G/DL (3.4-5.0); ALBUMIN/GLOBULIN RATIO 0.5 (1.1-1.5); ALKALINE PHOSPHATASE 76 IU/L (46-116); ANION GAP 9 (8-16); ASPARTATE AMINO TRANSFERASE 25 U/L (10-37); BILIRUBIN,TOTAL 0.7 MG/DL (0.1-1.0); BLOOD UREA NITROGEN 5 MG/DL (7-18); BUN/CREATININE RATIO 11.9 (10.0-20.0); CALCIUM 7.7 MG/DL (8.5-10.1); CHLORIDE 102 MMOL/L (99-107); CREATININE 0.42 MG/DL (0.40-0.90); GLUCOSE 75 MG/DL (70-104); MAGNESIUM 1.9 MG/DL (1.5-2.4); POTASSIUM 3.1 MMOL/L (3.5-5.1); SODIUM 137 MMOL/L (135-145); TOTAL CARBON DIOXIDE 26.3 MMOL/L (24-32); TOTAL PROTEIN 5.8 G/DL (6.4-8.2); eCRCL 83 ML/MIN; eGFR > 90 ML/MIN
[2024-07-13 10:00] VITALS: BP 140/56; PULSE 72; RESP 16; TEMP 98.7; O2SAT 94
[2024-07-13] MEDS: potassium Cl 40MEQ/270ML bag 270 ML IV PRN (17:28)
[2024-07-13 18:00] VITALS: BP 137/55; PULSE 93; RESP 16; TEMP 98.2; O2SAT 95
[2024-07-13 20:00] VITALS: RESP 16; O2SAT 95
--- NOTE | 2024-07-13 21:19 | PROGRESS NOTE- Residence ---
Progress Note - Resident Providers to CC Resident Creating Document: ALISSON RAMOS RES ~ Antibiotic Timeout Antibiotic Ordered?: Yes Subjective Patient was seen and examined at the bedside. NG-tube removed. Patient is passing gas and had one small bowel movement today. Patient is able to tolerate liquid diet. Pending physical therapy evaluation. Surgeon following. Patient's pain is well controlled without using any pain medication. Objective Vital Signs Date Time Temp Pulse Resp B/P (MAP) Pulse Ox O2 Delivery O2 Flow Rate FiO2 07/13/24 10:00 98.7 72 16 140/56 (84) 94 Room Air 07/10/24 18:30 3.0 Result Diagram: 07/13/2444907/13/24449 General: well developed, well nourished. Awake , alert, and oriented x4, resting comfortably in the bed, in no acute distress . HEENT: Atraumatic, normocephalic, EOMI, anicteric sclera B; pink conjunctiva; PERRLA, normal oropharynx, moist oral and nasal mucosa. Tympanic membrane , nose , throat clear. Neck: Trachea midline. Supple, full range of motion, no JVD, bruit , hepatojugular reflex , lymphadenopathy or masses, or other lesions Cardiac: Regular rhythm, regular rate no murmurs, rubs, or gallops. Normal S1 and S2, no S3 noticed. PMI is normal. Respiratory: Equal breath sounds bilaterally, no tachypnea; lungs clear to auscultation bilaterally, no wheezing ,rub or rales, or crackles. Chest wall is symmetric and without deformity. No signs of trauma. Chest wall is nontender. No signs of respiratory distress. Resonance is normal upon percussion bilaterally. Gastrointestinal: Abdomen surgical site intact and covered with dressing. GJ tube in place. No pulsatile masses. Equal femoral pulses. No Armenta's sign or McBurney point tenderness. Back; no CVA tenderness bilaterally, no deformities. Neck and back are without deformity as well. No tenderness noted on palpation of the spinous processes. Spinous processes are midline. Cervical, thoracic, and lumbar paraspinal muscles are not tender and are without spasm. : normal external genitalia, without lesions, swelling, masses or tenderness. Musculoskeletal: Extremities, normal range of motion, non-tender, muscle strength 5/5 x 4. Negative Homans signs bilaterally on lower extremity. Distal pulses full symmetrical, no clubbing, cyanosis , edema. Neurological: Speech is clear, alert, and oriented x 4. No motor or sensory deficit, deep tendon reflexes normal, cerebellar intact. Cranial nerves II-XII intact. Psych: Alert and or appropriate, normal affect. Vascular: Good distal pulses, which are equal x4; capillary refill less than 2 seconds. Skin: Warm, dry, no pallor, no rash or petechiae. Coagulation Studies Laboratory Tests Test 07/09/24 14:22 Prothrombin Time 11.5 SECONDS (9.0-12.0) INR International Normalized Ratio 1.1 INR Activated Partial Thromboplast Time 27 SECONDS (22-32) Coagulation Comments Assessment Assessment This is a 88-year-old female with a history of arthritis, hypertension, hypothyroidism, adenocarcinoma of sigmoid s/p resection in 2004, four C-sections presents to the ED with a chief complaint of abdominal pain since yesterday night. She was not able to eat anything since last night and had 7/10 abdominal pain which progressively worsened this morning and hence decided to visit the ER. She had nausea and three episodes of vomiting in the ER. She has a associated abdominal distention and felt a hard mass around the umbilicus mostly on the left side and was not passing any gas since yesterday evening. She denies any fever but has lost 10-20 lb in the last two years due to low appetite. Plan Plan Acute Strangulated ventral hernia CT abdomen shows Multiple dilated loops of small bowel measuring up to 3.2cm. Large fat containing ventral abdominal wall hernia also containing a loop of small bowel, which is likely the transition point is consistent with a mechanical bowel obstruction. Abdomen asymmetric, moderately distended, hard mass around the umbilicus, non- tender, absent bowel sounds x4 quadrant Continue IV fluids at the rate of 100 mL/hour. Nausea medication Zofran as needed. One dose of cefoxitin given before surgery. 07/10/24: Patient underwent robotic lysis of adhesions, exploratory laparotomy and small bowel resection of ischemic bowel, repair of ventral hernia. Educated the nursing staff on Pain control with [place], morphine, Dilaudid as needed 07/11/2024: No bowel sounds yet, not passing flatus. Pain well controlled. Abdominal drain has about 60 mL output 07/12/2024: NG tube removed. Bowel sounds appreciated. Not passing flatus yet. Still on ice chip diet. 07/13/2024: Patient improving. Had one small bowel movement. Still on ice chip diet Pain is well controlled without using any [place] or Dilaudid UTI UA shows 50-100 urine WBC and small high positive leukocyte esterase. Started on ceftriaxone IV 1 g daily. Follow up with urine cultures Normocytic normochromic Anemia Continue monitoring CBC. Iron studies ordered. Follow up. Consider FOBT if it is iron-deficiency anemia Hypokalemia Potassium replacement protocol in place Hypertension Continue home medication amlodipine, hydrochlorothiazide, irbesartan after resuming oral feeds. IV hydralazine p.r.n. for high blood pressure till then Hypothyroidism Continue levothyroxine after resuming oral feeds Severe protein calorie malnutrition Hypoalbuminemia With albumin 1.9. Ensure enlive t.i.d. when starting oral feels Code Status: DNR DVT Prophylaxis: Heparin Analgesia/Sedation: Morphine, Dilaudid p.r.n. Lines/Tubes: PIV Gi Prophylaxis: None Nutrition: Ice chip diet PT: Yes Prognosis: Guarded Disposition: Continue care in surgical floor. Discharge planning per surgeon. Alisson Stock MD Internal Medicine Resident PGY-1 Date of Service: July 13, 2024 Billing Provider: MARISEL JOY MD,ALISSON STOCK, RES July 13, 2024 21:19
--- NOTE | 2024-07-13 21:33 | PROGRESS NOTE ---
Progress Note ID Providers to CC ~ Progress Note Progress Note: doing well/start RL Jeffrey MD July 13, 2024 21:33
[2024-07-13 22:00] VITALS: BP 91/58; PULSE 84; RESP 14; TEMP 98.1; O2SAT 97
[2024-07-14] MEDS: metoclopramide 5 mg/ml inj IV SCH (03:01)
[2024-07-14 05:02] LABS: BASOPHILS % (AUTO) 0.4 % (0-1); EOSINOPHILS # (AUTO) 0.2 X10'3 (0-0.9); EOSINOPHILS % (AUTO) 2.5 % (0-6); HEMATOCRIT 32.1 % (35.0-45.0); HEMOGLOBIN 10.7 g/dl (12.0-16.0); LYMPHOCYTES # (AUTO) 1.5 X10'3 (1.1-4.8); LYMPHOCYTES % (AUTO) 19.5 % (21-51); MEAN CORPUSCULAR HEMOGLOBIN 28.7 PG (27.0-31.0); MEAN CORPUSCULAR HGB CONC 33.3 g/dL (33.0-36.5); MEAN CORPUSCULAR VOLUME 86.1 FL (78-98); MEAN PLATELET VOLUME 7.1 FL (7.4-10.4); MONOCYTES # (AUTO) 0.9 X10'3 (0-0.9); MONOCYTES % (AUTO) 11.4 % (2-12); NEUTROPHILS # (AUTO) 5.3 X10'3 (1.8-7.7); NEUTROPHILS % (AUTO) 66.2 % (42-75); PLATELET COUNT 373 X10'3 (140-440); RED BLOOD COUNT 3.73 X10'6 (4.20-5.60); RED CELL DISTRIBUTION WIDTH 16.7 % (11.5-14.5); WHITE BLOOD COUNT 7.9 X10'3 (4.5-11.0)
[2024-07-14 05:31] LABS: ALANINE AMINOTRANSFERASE 24 U/L (12-78); ALBUMIN 1.9 G/DL (3.4-5.0); ALBUMIN/GLOBULIN RATIO 0.5 (1.1-1.5); ALKALINE PHOSPHATASE 76 IU/L (46-116); ANION GAP 12 (8-16); ASPARTATE AMINO TRANSFERASE 20 U/L (10-37); BILIRUBIN,TOTAL 0.8 MG/DL (0.1-1.0); BLOOD UREA NITROGEN 6 MG/DL (7-18); BUN/CREATININE RATIO 16.2 (10.0-20.0); CHLORIDE 101 MMOL/L (99-107); CREATININE 0.37 MG/DL (0.40-0.90); GLUCOSE 64 MG/DL (70-104); MAGNESIUM 1.7 MG/DL (1.5-2.4); POTASSIUM 3.3 MMOL/L (3.5-5.1); SODIUM 135 MMOL/L (135-145); TOTAL CARBON DIOXIDE 22.3 MMOL/L (24-32); TOTAL PROTEIN 5.8 G/DL (6.4-8.2); eCRCL 94 ML/MIN; eGFR > 90 ML/MIN
[2024-07-14 06:32] VITALS: BP 99/69; PULSE 56; RESP 16; TEMP 98.4; O2SAT 94
[2024-07-14 10:00] VITALS: BP 130/54; PULSE 80; RESP 15; TEMP 98.2; O2SAT 97
[2024-07-14] MEDS: potassium Cl 40MEQ/1/2NS 520ml 520 ML IV PRN (11:10)
--- NOTE | 2024-07-14 15:04 | PROGRESS NOTE ---
Progress Note ID Providers to CC ~ Progress Note Progress Note: doing well/start clears-pt RL LOPEZ MD July 14, 2024 15:04
--- NOTE | 2024-07-14 17:21 | PROGRESS NOTE- Residence ---
Progress Note - Resident Providers to CC Resident Creating Document: ALISSON RAMOS RES ~ Antibiotic Timeout Antibiotic Ordered?: Yes Subjective Patient was seen and examined at the bedside. Patient has been started on clear liquid diet today by the surgeon. GJ tube has been removed. Bowel sounds present. Passing flatus. Anticipated discharge tomorrow with home health. Objective Vital Signs Date Time Temp Pulse Resp B/P (MAP) Pulse Ox O2 Delivery O2 Flow Rate FiO2 07/14/24 10:00 98.2 80 15 130/54 (79) 97 Room Air 07/10/24 18:30 3.0 Result Diagram: 07/14/2441507/14/24415 General: well developed, well nourished. Awake , alert, and oriented x4, resting comfortably in the bed, in no acute distress . HEENT: Atraumatic, normocephalic, EOMI, anicteric sclera B; pink conjunctiva; PERRLA, normal oropharynx, moist oral and nasal mucosa. Tympanic membrane , nose , throat clear. Neck: Trachea midline. Supple, full range of motion, no JVD, bruit , hepatojugular reflex , lymphadenopathy or masses, or other lesions Cardiac: Regular rhythm, regular rate no murmurs, rubs, or gallops. Normal S1 and S2, no S3 noticed. PMI is normal. Respiratory: Equal breath sounds bilaterally, no tachypnea; lungs clear to auscultation bilaterally, no wheezing ,rub or rales, or crackles. Chest wall is symmetric and without deformity. No signs of trauma. Chest wall is nontender. No signs of respiratory distress. Resonance is normal upon percussion bilaterally. Gastrointestinal: Abdomen surgical site intact and covered with dressing. GJ tube in place. No pulsatile masses. Equal femoral pulses. No Armenta's sign or McBurney point tenderness. Back; no CVA tenderness bilaterally, no deformities. Neck and back are without deformity as well. No tenderness noted on palpation of the spinous processes. Spinous processes are midline. Cervical, thoracic, and lumbar paraspinal muscles are not tender and are without spasm. : normal external genitalia, without lesions, swelling, masses or tenderness. Musculoskeletal: Extremities, normal range of motion, non-tender, muscle strength 5/5 x 4. Negative Homans signs bilaterally on lower extremity. Distal pulses full symmetrical, no clubbing, cyanosis , edema. Neurological: Speech is clear, alert, and oriented x 4. No motor or sensory deficit, deep tendon reflexes normal, cerebellar intact. Cranial nerves II-XII intact. Psych: Alert and or appropriate, normal affect. Vascular: Good distal pulses, which are equal x4; capillary refill less than 2 seconds. Skin: Warm, dry, no pallor, no rash or petechiae. Coagulation Studies Laboratory Tests Test 07/09/24 14:22 Prothrombin Time 11.5 SECONDS (9.0-12.0) INR International Normalized Ratio 1.1 INR Activated Partial Thromboplast Time 27 SECONDS (22-32) Coagulation Comments Assessment Assessment This is a 88-year-old female with a history of arthritis, hypertension, hypothyroidism, adenocarcinoma of sigmoid s/p resection in 2004, four C-sections presents to the ED with a chief complaint of abdominal pain since yesterday night. She was not able to eat anything since last night and had 7/10 abdominal pain which progressively worsened this morning and hence decided to visit the ER. She had nausea and three episodes of vomiting in the ER. She has a associated abdominal distention and felt a hard mass around the umbilicus mostly on the left side and was not passing any gas since yesterday evening. She denies any fever but has lost 10-20 lb in the last two years due to low appetite. Plan Plan Acute Strangulated ventral hernia , postoperative day four CT abdomen shows Multiple dilated loops of small bowel measuring up to 3.2cm. Large fat containing ventral abdominal wall hernia also containing a loop of small bowel, which is likely the transition point is consistent with a mechanical bowel obstruction. Abdomen asymmetric, moderately distended, hard mass around the umbilicus, non- tender, absent bowel sounds x4 quadrant Continue IV fluids at the rate of 100 mL/hour. Nausea medication Zofran as needed. One dose of cefoxitin given before surgery. 07/10/24: Patient underwent robotic lysis of adhesions, exploratory laparotomy and small bowel resection of ischemic bowel, repair of ventral hernia. Educated the nursing staff on Pain control with [place], morphine, Dilaudid as needed 07/14/2024: GJ tube removed. Started on clear liquid diet, advance as tolerated UTI UA shows 50-100 urine WBC and small high positive leukocyte esterase. Started on ceftriaxone IV 1 g daily. Follow up with urine cultures Normocytic normochromic Anemia Continue monitoring CBC. Iron studies ordered. Follow up. Consider FOBT if it is iron-deficiency anemia Hypokalemia Potassium replacement protocol in place Hypertension Continue home medication amlodipine, hydrochlorothiazide, irbesartan after resuming oral feeds. IV hydralazine p.r.n. for high blood pressure till then Hypothyroidism Continue levothyroxine after resuming oral feeds Severe protein calorie malnutrition Hypoalbuminemia With albumin 1.9. Ensure enlive t.i.d. when starting oral feels Code Status: DNR DVT Prophylaxis: Heparin Analgesia/Sedation: Morphine, Dilaudid p.r.n. Lines/Tubes: PIV Gi Prophylaxis: None Nutrition: Clear liquid diet PT: Yes Prognosis: Guarded Disposition: Continue care in surgical floor. Discharge planning per surgeon. Anticipated discharge tomorrow Alisson Good MD Internal Medicine Resident PGY-1 Date of Service: July 14, 2024 Billing Provider: MARISEL JOY MD, DEEPIKA BANDI, RES July 14, 2024 17:21
[2024-07-14 18:00] VITALS: BP 131/55; PULSE 88; RESP 16; TEMP 98.9; O2SAT 95
[2024-07-14 20:00] VITALS: RESP 15; O2SAT 95
[2024-07-14 22:00] VITALS: BP 128/56; PULSE 84; RESP 20; TEMP 98.5; O2SAT 95
[2024-07-15 06:00] VITALS: BP 126/50; PULSE 88; RESP 16; TEMP 98.2; O2SAT 96
[2024-07-15 07:01] LABS: MAGNESIUM 1.8 MG/DL (1.5-2.4); POTASSIUM 3.3 MMOL/L (3.5-5.1)
[2024-07-15 08:00] VITALS: RESP 16
[2024-07-15] MEDS: potassium Cl 20 mEq SR tablet PO PRN ×2 (08:39→20:09)
[2024-07-15 10:00] VITALS: BP 123/55; PULSE 95; RESP 16; TEMP 97.7; O2SAT 96
--- NOTE | 2024-07-15 11:27 | PROGRESS NOTE ---
Progress Note Dictate Providers to CC CC: LINNETTE BIRCH MD ~ Progress Note: Subsequent surgical care on an 88-year-old woman who is postoperative day 5. Status post robotic assisted laparoscopic lysis of adhesions followed by exploratory laparotomy with small-bowel resection for incarcerated/strangulated incisional hernia Covering for Dr. Sebastian Avalos over the weekend Tolerating a clear liquid diet Incisions clean, dry and intact full liquid diet saline lock Antibiotic Ordered?: N/A Objective Vitals Vital Signs Date Time Temp Pulse Resp B/P (MAP) Pulse Ox O2 Delivery O2 Flow Rate FiO2 07/15/24 08:41 88 07/15/24 06:00 98.2 16 126/50 (75) 96 Room Air Lab Results: 07/14/24 0416 07/15/24 0527 Coagulation Studies Laboratory Tests Test 07/09/24 14:22 Prothrombin Time 11.5 SECONDS (9.0-12.0) INR International Normalized Ratio 1.1 INR Activated Partial Thromboplast Time 27 SECONDS (22-32) Coagulation Comments LINNETTE BIRCH MD July 15, 2024 11:26
--- NOTE | 2024-07-15 18:04 | PROGRESS NOTE- Residence ---
Progress Note - Resident Providers to CC Resident Creating Document: LENNIE RINCON RES CC: MARISEL JOY MD ~ Antibiotic Timeout Antibiotic Ordered?: No Subjective Patient was seen and examined at the bedside. Patient is tolerating clear liquid diet. Awaiting clearance from Dr. Avalos for discharge Objective Vital Signs Date Time Temp Pulse Resp B/P (MAP) Pulse Ox O2 Delivery O2 Flow Rate FiO2 07/15/24 10:00 97.7 95 16 123/55 (77) 96 Room Air Result Diagram: 07/14/24 0416 07/15/24 0527 General: Alert, awake, oriented, not in acute distress HEENT: PERRLA, no icterus, pallor, lymphadenopathy, carotid bruit Respiratory system: Bilateral vesicular breath sounds heard, no adventitious breath sounds CVS: S1-S2 heard, no murmurs/rubs/gallop GI: Surgical site intact with no erythema or swelling and is covered in surgical dressing. Soft, nontender, no organomegaly, no guarding/rigidity, bowel sounds present Neuro: No focal neurological deficits present Extremities: No edema cyanosis clubbing/deformities Skin: Warm and dry Coagulation Studies Laboratory Tests Test 07/09/24 14:22 Prothrombin Time 11.5 SECONDS (9.0-12.0) INR International Normalized Ratio 1.1 INR Activated Partial Thromboplast Time 27 SECONDS (22-32) Coagulation Comments Assessment Assessment This is a 88-year-old female with a history of arthritis, hypertension, hypothyroidism, adenocarcinoma of sigmoid s/p resection in 2004, four C-sections presents to the ED with a chief complaint of abdominal pain since yesterday night. She was not able to eat anything since last night and had 7/10 abdominal pain which progressively worsened this morning and hence decided to visit the ER. She had nausea and three episodes of vomiting in the ER. She has a associated abdominal distention and felt a hard mass around the umbilicus mostly on the left side and was not passing any gas since yesterday evening. She denies any fever but has lost 10-20 lb in the last two years due to low appetite. Plan Plan Acute Strangulated ventral hernia , postoperative day four CT abdomen shows Multiple dilated loops of small bowel measuring up to 3.2cm. Large fat containing ventral abdominal wall hernia also containing a loop of small bowel, which is likely the transition point is consistent with a mechanical bowel obstruction. Abdomen asymmetric, moderately distended, hard mass around the umbilicus, non- tender, absent bowel sounds x4 quadrant Continue IV fluids at the rate of 100 mL/hour. Nausea medication Zofran as needed. One dose of cefoxitin given before surgery. 07/10/24: Patient underwent robotic lysis of adhesions, exploratory laparotomy and small bowel resection of ischemic bowel, repair of ventral hernia. Educated the nursing staff on Pain control with [place], morphine, Dilaudid as needed 07/14/2024: GJ tube removed. Started on clear liquid diet, advance as tolerated UTI UA shows 50-100 urine WBC and small high positive leukocyte esterase. Continue ceftriaxone IV 1 g daily. Follow up with urine cultures Normocytic normochromic Anemia Continue monitoring CBC. Iron studies ordered. Follow up. Consider FOBT if it is iron-deficiency anemia Hypokalemia Potassium replacement protocol in place Hypertension Continue home medication amlodipine, hydrochlorothiazide, irbesartan after resuming oral feeds. IV hydralazine p.r.n. for high blood pressure till then Hypothyroidism Continue levothyroxine Severe protein calorie malnutrition Hypoalbuminemia With albumin 1.9. Ensure enlive t.i.d. when starting oral feels Code Status: DNR DVT Prophylaxis: Heparin Nutrition: Clear liquid diet Prognosis: Guarded Disposition: Continue care in surgical floor. Discharge planning per surgeon. Lennie Rincon MD Internal Medicine, PGY 1 Date of Service: July 15, 2024 Billing Provider: MARISEL JOY MD, SIVA, RES July 15, 2024 18:04
[2024-07-15 19:00] VITALS: BP 120/47; PULSE 91; RESP 16; TEMP 97.6; O2SAT 97
[2024-07-15 20:00] VITALS: RESP 18; O2SAT 96
[2024-07-15 22:00] VITALS: BP 123/57; PULSE 85; RESP 16; TEMP 98.2; O2SAT 95
[2024-07-16 06:00] VITALS: BP 134/53; PULSE 86; RESP 14; TEMP 97.6; O2SAT 96
[2024-07-16 06:57] LABS: BASOPHILS % (AUTO) 0.5 % (0-1); EOSINOPHILS # (AUTO) 0.4 X10'3 (0-0.9); EOSINOPHILS % (AUTO) 4.5 % (0-6); HEMATOCRIT 30.9 % (35.0-45.0); HEMOGLOBIN 10.3 g/dl (12.0-16.0); LYMPHOCYTES # (AUTO) 1.5 X10'3 (1.1-4.8); LYMPHOCYTES % (AUTO) 18.2 % (21-51); MEAN CORPUSCULAR HEMOGLOBIN 28.6 PG (27.0-31.0); MEAN CORPUSCULAR HGB CONC 33.4 g/dL (33.0-36.5); MEAN CORPUSCULAR VOLUME 85.7 FL (78-98); MONOCYTES # (AUTO) 1.1 X10'3 (0-0.9); MONOCYTES % (AUTO) 13.7 % (2-12); NEUTROPHILS # (AUTO) 5.2 X10'3 (1.8-7.7); NEUTROPHILS % (AUTO) 63.1 % (42-75); PLATELET COUNT 360 X10'3 (140-440); RED CELL DISTRIBUTION WIDTH 16.6 % (11.5-14.5); WHITE BLOOD COUNT 8.2 X10'3 (4.5-11.0)
[2024-07-16 07:15] LABS: ALBUMIN 1.9 G/DL (3.4-5.0); ANION GAP 8 (8-16); BLOOD UREA NITROGEN 6 MG/DL (7-18); BUN/CREATININE RATIO 16.2 (10.0-20.0); CHLORIDE 105 MMOL/L (99-107); CREATININE 0.37 MG/DL (0.40-0.90); GLUCOSE 89 MG/DL (70-104); MAGNESIUM 1.7 MG/DL (1.5-2.4); POTASSIUM 3.9 MMOL/L (3.5-5.1); SODIUM 137 MMOL/L (135-145); TOTAL CARBON DIOXIDE 23.7 MMOL/L (24-32); eCRCL 94 ML/MIN; eGFR > 90 ML/MIN
[2024-07-16 09:00] VITALS: RESP 16
--- NOTE | 2024-07-16 09:27 | DISCHARGE SUMMARY-Residence ---
Discharge Summary Providers to CC Resident Creating Document: ALISSON RAMOS, RES ~ Discharge Summary Admission Diagnosis: abdominal pain Hospital Course DATE OF ADMISSION: 07/09/2024 DATE OF DISCHARGE: 07/16/2024 Discharge Diagnosis\Comment: Acute Strangulated ventral hernia s/p robotic lysis of adhesions, exploratory laparotomy and small bowel resection of ischemic bowel, repair of ventral hernia. UTI Normocytic normochromic Anemia Hypokalemia Hypertension Hypothyroidism Severe protein calorie malnutrition Hypoalbuminemia Operations\Procedures: robotic lysis of adhesions, exploratory laparotomy and small bowel resection of ischemic bowel, repair of ventral hernia. Consultants: Dr. Avalos, Dr. Carpenter Complications: None Condition on DC: Stable Continued Medications: Amlodipine Besylate (Amlodipine Besylate) 10 Mg Tablet 1 TAB PO DAILY Atorvastatin Calcium (Atorvastatin Calcium) 40 Mg Tablet 1 TAB PO DAILY Hydrochlorothiazide (Hydrochlorothiazide) 12.5 Mg Tablet Irbesartan (Irbesartan) 150 Mg Tablet 1 TAB PO DAILY Levothyroxine Sodium (Levothyroxine Sodium) 25 Mcg Tablet 1 TAB PO DAILY Omeprazole (Prilosec) 40 Mg Capsule 1 CAP PO DAILY Oxybutynin Chloride (Oxybutynin Chloride) 5 Mg Tablet 1 TAB PO BID Discharge Summary: History of present illness: This is a 88-year-old female with a history of arthritis, hypertension, hypothyroidism, adenocarcinoma of sigmoid s/p resection in 2004, four C-sections presents to the ED with a chief complaint of abdominal pain since yesterday night. She was not able to eat anything since last night and had 7/10 abdominal pain which progressively worsened this morning and hence decided to visit the ER. She had nausea and three episodes of vomiting in the ER. She has a associated abdominal distention and felt a hard mass around the umbilicus mostly on the left side and was not passing any gas since yesterday evening. She denies any fever but has lost 10-20 lb in the last two years due to low appetite. Hospital course: CT abdomen shows Multiple dilated loops of small bowel measuring up to 3.2cm. Large fat containing ventral abdominal wall hernia also containing a loop of small bowel, which is likely the transition point is consistent with a mechanical bowel obstruction. Abdomen asymmetric, moderately distended, hard mass around the umbilicus, non-tender, absent bowel sounds x4 quadrant at admission. Started IV fluids at the rate of 100 mL/hour. Nausea medication Zofran as needed. One dose of cefoxitin given before surgery. Patient underwent robotic lysis of adhesions, exploratory laparotomy and small bowel resection of ischemic bowel, repair of ventral hernia. Educated the nursing staff on Pain control with [place], morphine, Dilaudid as needed. GJ tube removed. Started on clear liquid diet, advance as tolerated. UA shows 50-100 urine WBC and small high positive leukocyte esterase. Started on ceftriaxone IV 1 g daily. Urine cultures were negative. Continued home medication amlodipine, hydrochlorothiazide, irbesartan after resuming oral feeds. Severe protein calorie malnutrition. Hypoalbuminemia With albumin 1.9. Ensure enlive t.i.d. when starting oral feels. Started on Reglan after which she had a bowel movement. Physical examination at discharge: General: Alert, awake, oriented, not in acute distress HEENT: PERRLA, no icterus, pallor, lymphadenopathy, carotid bruit Respiratory system: Bilateral vesicular breath sounds heard, no adventitious breath sounds CVS: S1-S2 heard, no murmurs/rubs/gallop GI: Surgical site intact with no erythema or swelling and is covered in surgical dressing. Soft, nontender, no organomegaly, no guarding/rigidity, bowel sounds present Neuro: No focal neurological deficits present Extremities: No edema cyanosis clubbing/deformities Skin: Warm and dry Vital Signs Date Time Temp Pulse Resp B/P (MAP) Pulse Ox O2 Delivery O2 Flow Rate FiO2 07/16/24 06:00 97.6 86 14 134/53 (80) 96 Room Air 07/16/24 05:55 0.0 95 Laboratory Tests Test 07/15/24 05:27 07/16/24 05:59 Potassium Level 3.3 MMOL/L 3.9 MMOL/L Magnesium Level 1.8 MG/DL 1.7 MG/DL White Blood Count 8.2 X10'3 Red Blood Count 3.60 X10'6 Hemoglobin 10.3 g/dl Hematocrit 30.9 % Mean Corpuscular Volume 85.7 FL Mean Corpuscular Hemoglobin 28.6 PG Mean Corpuscular Hemoglobin Concent 33.4 g/dL Red Cell Distribution Width 16.6 % Platelet Count 360 X10'3 Mean Platelet Volume 7.0 FL Neutrophils (%) (Auto) 63.1 % Lymphocytes (%) (Auto) 18.2 % Monocytes (%) (Auto) 13.7 % Eosinophils (%) (Auto) 4.5 % Basophils (%) (Auto) 0.5 % Neutrophils # (Auto) 5.2 X10'3 Lymphocytes # (Auto) 1.5 X10'3 Monocytes # (Auto) 1.1 X10'3 Eosinophils # (Auto) 0.4 X10'3 Basophils # (Auto) 0.0 X10'3 CBC Comment Sodium Level 137 MMOL/L Chloride Level 105 MMOL/L Carbon Dioxide Level 23.7 MMOL/L Anion Gap 8 Blood Urea Nitrogen 6 MG/DL Creatinine 0.37 MG/DL Estimated GFR/1.73 m2 > 90 ML/MIN BUN/Creatinine Ratio 16.2 Glucose Level 89 MG/DL Calcium Level 8.0 MG/DL Albumin 1.9 G/DL Chemistry Comments Imaging: Abdomen CT: Multiple dilated loops of small bowel measuring up to 3.2cm. Large fat containing ventral abdominal wall hernia also containing a loop of s mall bowel, which is likely the transition point is consistent with a mechanical bowel obstruction. Discharge instructions: Follow up with Dr. Avalos office in a week. Return to the ED if you have worsening abdominal pain or fever or pus discharge from surgical site *Problems/Diagnosis: (1) Ventral hernia with bowel obstruction Status: Acute Total Time Spent on D/C: > 30 Minutes Date of Service: Jul 16, 2024 Billing Provider: MARISEL JOY MD, DEEPIKA BANDI, RES Jul 16, 2024 09:27
[2024-07-16 10:00] VITALS: BP 123/47; PULSE 87; RESP 18; TEMP 98.4; O2SAT 98
--- NOTE | 2024-07-16 10:19 | PROGRESS NOTE ---
Progress Note Dictate Providers to CC CC: LINNETTE BIRCH MD ~ Progress Note: Subsequent surgical care on an 88-year-old woman who is postoperative day 6. Status post robotic assisted laparoscopic lysis of adhesions followed by exploratory laparotomy with small-bowel resection for incarcerated/strangulated incisional hernia Covering for Dr. Sebastian Avalos over the weekend Tolerating a full liquid diet Incisions clean, dry and intact Regular diet saline lock Okay for discharge home from a surgical standpoint. Follow up with Dr. Sebastian Avalos in 1-2 weeks for staple removal Antibiotic Ordered?: N/A Objective Vitals Vital Signs Date Time Temp Pulse Resp B/P (MAP) Pulse Ox O2 Delivery O2 Flow Rate FiO2 07/16/24 09:45 86 07/16/24 06:00 97.6 14 134/53 (80) 96 Room Air 07/16/24 05:55 0.0 95 Lab Results: 07/16/24 0559 07/16/24 0559 Coagulation Studies Laboratory Tests Test 07/09/24 14:22 Prothrombin Time 11.5 SECONDS (9.0-12.0) INR International Normalized Ratio 1.1 INR Activated Partial Thromboplast Time 27 SECONDS (22-32) Coagulation Comments LINNETTE BIRCH MD Jul 16, 2024 10:19
== END 2024-07-16 14:05 | disposition home health service (06) | DRG 329 ==
LOC: ER 12:21 → SUR 3N 15:18
PROVIDERS: ADMIT Internal Medicine; ATTEND Internal Medicine
PROC: 0DNW4ZZ Release Peritoneum, Percutaneous Endoscopic Approach (ICD-10-PCS; 2024-07-10)
PROC: 0WJG4ZZ Inspection of Peritoneal Cavity, Percutaneous Endoscopic Approach (ICD-10-PCS; 2024-07-10)
PROC: 0WQF4ZZ Repair Abdominal Wall, Percutaneous Endoscopic Approach (ICD-10-PCS; 2024-07-10)
PROC: 0DB80ZZ Excision of Small Intestine, Open Approach (ICD-10-PCS; principal; 2024-07-10 10:28)
DX: K43.6 Other and unspecified ventral hernia with obstruction, without gangrene (principal); E43 Unspecified severe protein-calorie malnutrition; K55.9 Vascular disorder of intestine, unspecified; N39.0 Urinary tract infection, site not specified; K56.50 Intestinal adhesions [bands], unspecified as to partial versus complete obstruction; Z66 Do not resuscitate; K56.41 Fecal impaction; E03.9 Hypothyroidism, unspecified; I10 Essential (primary) hypertension; D64.9 Anemia, unspecified; E87.6 Hypokalemia; Z68.22 Body mass index [BMI] 22.0-22.9, adult; E88.09 Other disorders of plasma-protein metabolism, not elsewhere classified; Z53.31 Laparoscopic surgical procedure converted to open procedure; Z85.038 Personal history of other malignant neoplasm of large intestine
CPT/HCPCS: 36415; 71045; 74018; 74176; 80048; 80053; 80061; 81001; 82948; 83036; 83605; 83735; 83880; 84132; 84484; 85025; 85610; 85730; 87040; 87081; 87088; 88307; 93005; 96374; 97116; 97161; 97530; 99285; A4215; A4615; A4618; A5200; A6253; A6258; A6266; A6407; A6449; C1758; G0378; J0131; J0694; J0696; J1100; J1171; J1644; J2270; J2405; J2704; J2765; J3010; J3475; J3480; J3490; J7030; J7120; P9045